=== PATIENT | female | born 1980 | race Caucasian/White ===

== ENCOUNTER → 2018-09-22 | Outpatient (CLI) | payer OTHER ==
[~2018-09-22] MED LIST: LIDOCAINE HCL 1% LOCAL INJ 20 ML VIAL ONE
--- NOTE | 2018-09-22 14:35 | Diagnostic Imaging Report ---
PROCEDURE:BIOPSY THYROID FNA COMPARISON:None. INDICATIONS:Not provided. FINDINGS: Written and verbal consent were obtained. Patient was placed in the supine position. Preliminary ultrasound identified deep lower pole hypoechoic nodule of the right thyroid lobe. A safe entry route was identified and the overlying skin was prepped and draped in usual sterile fashion. Lidocaine 1% was used for local pain control. Total of 3 passes were obtained utilizing 25 gauge needles. Exam was difficult to perform due to several coughing episodes and breathing motion associated with movement of the nodule. The patient tolerated the procedure and there were no immediate post-procedural complications. Preliminary report by the attending Pathologist was adequate tissue sampling. CONCLUSION: Ultrasound-guided FNA of a right inferior pole nodule. Jeffry Dalal D.O. Dictated by: Jeffry Dalal D.O. on 09/22/2018 at 14:43 Electronically approved by: Jeffry Dalal D.O. on 09/22/2018 at 14:43
--- NOTE | 2018-09-22 14:43 | Diagnostic Imaging Report ---
PROCEDURE:ULTRASOUND GUIDANCE FOR PROCEDURE Informed consent was obtained. Ultrasound was used to identify the previously described right lower pole irregular thyroid nodule. The overlying skin was prepped and draped in the usual sterile fashion. Lidocaine 1% was infiltrated into the subcutaneous tissues for local anesthesia. CONCLUSION:Ultrasound guidance for thyroid nodule FNA. Jeffry Dalal D.O. Dictated by: Jeffry Dalal D.O. on 09/22/2018 at 14:52 Electronically approved by: Jeffry Dalal D.O. on 09/22/2018 at 14:52
== END ==
LOC: US 12:26
PROVIDERS: ATTEND Otolaryngology Otolaryngology/Facial Plastic Surgery
DX: E04.1 Nontoxic single thyroid nodule (principal)
CPT/HCPCS: 10022; 76942; 88112; 88172; 88173; 88305; J2001